=== PATIENT | female | born 1965 | race Caucasian/White ===

== ENCOUNTER 2017-06-23 08:51 | Day surgery (SDC) | payer BC ==
--- NOTE | 2017-06-21 10:36 | PREOPHP ---
DATE OF ADMISSION: 06/23/2017 ADMITTING DIAGNOSIS: Right shoulder labral tear, in for elective operative arthroscopy, debridement and superior labrum anterior and posterior repair of the right shoulder by Dr. Mars Mustafa. HISTORY OF PRESENT ILLNESS: The patient is a 52-year-old female with coronary artery disease, COPD, chronic pain, lumbar radiculopathy, recurrent urinary tract infections who fell last week, sustaining injury to her right shoulder. The patient sustained a tear in the superior labrum and was seen by Dr. Mustafa who felt that surgery was indicated in light of the pain and the tear. REVIEW OF SYSTEMS: Significant for occasional palpitations, no chest pain. No use of nitroglycerin, chronic burning urination at times but no fevers, chills, night sweats. No nausea, vomiting, or diarrhea. Intermittent constipation. PAST MEDICAL HISTORY: Gastroesophageal reflux disease, coronary artery disease , COPD, paroxysmal atrial fibrillation, gastroesophageal reflux disease, lumbar spondylosis with radiculopathy. Recurrent vaginitis and urinary tract infections. PAST SURGICAL HISTORY: Status post , status post salpingo- oophorectomy on the right side, status post surgical excision of the parotid tumor and gland. Status post vaginal hysterectomy. FAMILY HISTORY: Lung cancer with her father, breast cancer, brother with schizophrenia. ALLERGIES: 1. AVELOX. 2. CODEINE. 3. PENICILLIN. 4. SULFA. CURRENT MEDICATIONS: 1. Clindamycin 300 mg q.i.d. 2. Clindamycin vaginal. 3. Aspirin which is on hold. SOCIAL HISTORY: Patient long-term smoker. , lives with her . PHYSICAL EXAMINATION: VITAL SIGNS: Temperature 98.6, blood pressure 130/86, pulse of 75, respirations 16, pulse oximetry 98% on room air. GENERAL: Well-developed, thin female in no acute distress. HEENT: EOMI, PERRLA. Oropharynx clear, no exudate. NECK: No jugular venous distention, 2+ carotid upstroke, no bruits. No lymphadenopathy. CHEST: Decreased expiratory phase, otherwise clear, no rales, rhonchi or wheezes. HEART: Regular rate and rhythm. No murmurs, gallops or rubs noted. ABDOMEN: Soft, nontender, nondistended. No hepatojugular reflux. EXTREMITIES: Right shoulder in splint with moderate tenderness to palpation of the shoulder area. Full exam not performed due to the patient's pain. EXTREMITIES: No cyanosis, clubbing or edema. NEUROLOGIC: Nonfocal. LABORATORY EXAMINATION: Glucose is 62, BUN of 17, creatinine 0.62, sodium 143, potassium 3.9, chloride 102, bicarbonate 31, calcium 10.0. Total protein 7.2, albumin 4.9, bilirubin 0.6, alkaline phosphatase 80, AST 17, ALT of 9, PTT of 32 and INR 1.0. PT of 11.0, white blood cell count 11.3, hemoglobin 14.7, hematocrit 42.3, platelets 230. Urinalysis unremarkable. I did not have results of the chest x-ray at the time of this dictation. An EKG was done by Dr. Patel, who cleared the patient. ASSESSMENT AND PLAN: The patient is a 52-year-old female with a shoulder injury with a right labral tear in for elective surgical debridement arthroscopy and repair of the superior labral anterior and posterior repair by Dr. Mustafa. The patient is an ASA class 2 anesthesia risk secondary to controlled comorbid illnesses. We may proceed with the surgery as scheduled. The patient was instructed to discontinue any aspirin products 1 week prior to surgery. The patient may proceed with surgery as scheduled. There are no contraindications. Dictated By: DORENE MILLER MD, SR/RAS Conf#: [id number] DID#: [id number]
[~2017-06-23] VITALS: Ht 160 cm; Wt 48.5 kg
[2017-06-23] VITALS (13 sets, daily range): BP systolic 95–120; BP diastolic 52–75; PULSE 56–96; RESP 13–20; Ht 160 cm; Wt 48.5 kg
--- NOTE | 2017-06-23 05:34 | HPN ---
Date/Time of Note Date/Time of Note DATE: 06/23/17 TIME: 05:34 Interval H&P Admission Note Pt. seen H&P reviewed: No system changes FREDY ROBLEDO MD Jun 23, 2017 05:34
[~2017-06-23 08:51] MED LIST: DEXAMETHASONE 1 MG TAB PO ONE; GABAPENTIN 300 MG CAP PO ONE; TRANEXAMIC ACID 1,000 MG in SOD CHLORIDE 0.9% 100 ML IVPB ONE; VANCOMYCIN 1 GM (PMX) 250 ML IVPB ONE; [UNRECOGNIZED DRUG - OTHER]; traMADol 50 MG TAB PO ONE
[2017-06-23] MEDS ORDERED: CLIN-73 PO (09:25)
[2017-06-23] MEDS ORDERED: CLIN40CR VAG (09:27)
[2017-06-23] MEDS ORDERED: MIDAZOLAM 1 MG/ML 2 ML INJ ONE (10:46)
[2017-06-23] MEDS ORDERED: PROPOFOL 20 ML ONE (10:46)
[2017-06-23] MEDS ORDERED: LIDOCAINE 2% (SDV) 5 ML INJ ONE (10:46)
[2017-06-23] MEDS ORDERED: ROPIVACAINE 0.5 % 30 ML VIAL ONE (10:48)
[2017-06-23] MEDS ORDERED: morphine (1 MG/ML) 10ML SYRINGE IV PRN ×2 (11:00)
[2017-06-23] MEDS ORDERED: hydrALAzine 20 MG INJ IV PRN (11:00)
[2017-06-23] MEDS ORDERED: LABETALOL HCL 20MG INJ IV PRN (11:00)
[2017-06-23] MEDS ORDERED: DIPHENHYDRAMINE 50 MG INJ IV PRN (11:00)
[2017-06-23] MEDS ORDERED: ONDANSETRON 4 MG INJ IV PRN (11:00)
[2017-06-23] MEDS ORDERED: FENTAnyl 50 MCG/ML VIAL IV PRN (11:00)
[2017-06-23] MEDS ORDERED: ONDANSETRON 4 MG INJ ONE (12:33)
[2017-06-23] MEDS ORDERED: DEXAMETHASONE 4 MG/ML 1 ML INJ ONE (12:33)
[2017-06-23] MEDS ORDERED: FAMOTIDINE 20 MG INJ ONE (12:33)
--- NOTE | 2017-06-23 13:16 | PDOCDIS ---
Discharge Instructions DIAGNOSIS Discharge Diagnosis Rotator cuff tear with calcific tendinitis CONDITION Patient Condition: Good HOME CARE INSTRUCTIONS: Diet Instructions: Regular ACTIVITY: Activity Restrictions: Slowly Increase Activity Keep Limb Elevated Bathing Restrictions: Shower FOLLOW UP/APPOINTMENTS Follow-up Plan 2 weeks SCHOOL/WORK RELEASE May return to School/Work with: With Restrictions FREDY ROBLEDO MD Jun 23, 2017 13:16
--- NOTE | 2017-06-23 13:21 | OPR ---
Date/Time of Note Date/Time of Note DATE: 06/23/17 TIME: 13:18 Operative Report Procedure Date: Jun 23, 2017 Preoperative Diagnosis Right shoulder calcific tendinitis Postoperative Diagnosis 1. Right shoulder extensive calcific tendinitis with rotator cuff tear 2. Right shoulder labral tear. Operation/Procedure Performed 1. Right shoulder arthroscopic rotator cuff repair 2. Right shoulder arthroscopic extensive labral debridement and calcific tendinitis debridement Surgeon see signature line Dock Manager Donal Reynolds MD Anesthesia Type: general Estimated Blood Loss: minimal Transfusion none Specimen None Grafts/Implants none Complications none Pt Condition Post Procedure: stable Disposition: PACU Procedure Description Right shoulder calcific tendinitis Postoperative Diagnosis 1. Right shoulder rotator cuff tear with calcific tendinitis 2. Right shoulder labral tearing Operation/Procedure Performed 1. Right shoulder arthroscopy with rotator cuff repair 2. Right shoulder extensive debridement of glenohumeral joint and subacromial space. Surgeon Fredy Robledo MD Dock Manager Donal Reynolds MD Anesthesia Type: general with scalene block Estimated Blood Loss: minimal Transfusion none Specimen None Grafts/Implants 4.5 mm knotless anchor Complications none Procedure Description Dock Manager surgeon: Donal Reynolds MD was asked to be present at my request as a result of the complexity associated with procedure including positioning of the extremity and manipulation of the arthroscope. In my opinion, the assistance offered by a field service tech is insufficient and Dr. Reynolds should be compensated for his time. Procedure in detail: Following the administration of general endotracheal anesthesia the patient was then placed in the right lateral decubitus position and all prominences were padded including an axillary fold. The arm was then placed in 10 pounds of balanced traction. Sterile prep and drape was then undertaken. Anterior and posterior glenohumeral portals were then established. The superior labrum had extensive tearing from the 10:00 to the 3 o'clock position with a type I SLAP lesion there was no shoaib detachment of the biceps tendon and the biceps tendon was then pulled into the joint with no significant synovitis. The rotator cuff appeared intact. The glenoid and humeral cartilage appeared intact. The joint was then thoroughly debrided specifically, the superior labrum was then debrided from the 10:00 to the 3 o'clock position with no significant residual degenerative tissue. The subacromial space was then entered and the subacromial bursal reactive tissue was then debrided extensive calcific tendinitis was noted. A very large area of calcific tendinitis measuring approximately 3 x 2 cm was excised. There was a complete tear following the debridement this measured 2 x 1 cm. This was an outer surface tear. 2 #2 sutures were then passed through the rotator cuff the 2 sutures were then incorporated into a 4.5 mm knotless anchor. The ankle was impacted in a solid repair of the rotator cuff was completed. The joint was then thoroughly irrigated the portals were closed using 4-0 Monocryl suture sterile dressing and a sling. The patient was then awakened and transported to recovery in stable condition tolerating the procedure well FREDY ROBLEDO MD Jun 23, 2017 13:21
[2017-06-23] MEDS ORDERED: EPHEDrine SULFATE 50 MG/5 ML SYG ONE (13:23)
== END 2017-06-23 15:55 | disposition home or self-care (01) ==
LOC: SDS 08:51
PROVIDERS: ATTEND Orthopaedic Surgery
DX: M75.101 Unspecified rotator cuff tear or rupture of right shoulder, not specified as traumatic (principal); S43.492D Other sprain of left shoulder joint, subsequent encounter; X58.XXXD Exposure to other specified factors, subsequent encounter; I25.10 Atherosclerotic heart disease of native coronary artery without angina pectoris; J44.9 Chronic obstructive pulmonary disease, unspecified; Z87.891 Personal history of nicotine dependence
CPT/HCPCS: 29823; 29827; J1100; J2250; J2405; J2795; J3370